=== PATIENT | female | born 1940 | race Caucasian/White ===

== ENCOUNTER 2018-02-18 19:30 | Observation (INO) ==
[2018-02-18 21:20] LABS: Basophils % 0.2 % (0.0-0.8); Eosinophils # 0.2 10*3/uL (0.0-0.87); Eosinophils % 2.4 % (0.00-10.9); Hematocrit 35.2 VOL% (35.7-47.0); Hemoglobin 11.3 GM/DL (12.0-16.0); Immature Granulocytes % 0.2 %; Immature Granulocytes Absolute 0.02 #; Lymphocytes # 1.3 10*3/uL (1.4-4.0); Lymphocytes % 14.8 % (21.3-54.2); Mean Corpuscular HGB Conc 32.1 GM/DL (32-36); Mean Corpuscular Hemoglobin 29 PG (27-34); Mean Corpuscular Volume 88.7 FL (87-102); Mean Platelet Volume 10.2 FL (9.6-12.0); Monocytes # 0.6 10*3/uL (0.11-0.8); Neutrophils # 6.6 10*3/uL (1.4-7.4); Neutrophils % 75.4 % (38.7-73.9); Platelet Count 274 T/CUMM (130-400); Red Blood Count 3.97 MC/CUMM (3.8-5.5); White Blood Count 8.8 T/CUMM (4-12)
[2018-02-18 21:52] LABS: Alanine Aminotransferase 17 U/L (13-56); Alkaline Phosphatase 84 U/L (45-117); Aspartate Amino Transferase 20 U/L (0-37); Bilirubin,Total < 0.39 MG/DL (0.2-1.0); Blood Urea Nitrogen 16 MG/DL (7-18); Calcium 8.8 MG/DL (8.5-10.1); Glucose 100 MG/DL (74-106); Potassium 3.8 MMOL/L (3.5-5.1); Sodium 143 MMOL/L (136-145); Total Protein 6.5 G/DL (6.4-8.3); Troponin I Only < 0.015 NG/ML (0.00-0.045)
[2018-02-19] MEDS ORDERED: NITROGLYCERIN SL 0.4 MG TABLET SL PRN (00:58)
[2018-02-19 05:08] LABS: Troponin I Only < 0.015 NG/ML (0.00-0.045)
[2018-02-19] MEDS ORDERED: BACLOFEN 10 MG TABLET PO PRN (06:47)
[2018-02-19 08:44] LABS: Troponin I Only < 0.015 NG/ML (0.00-0.045)
[2018-02-19] MEDS ORDERED: ASPIRIN EC 81 MG TABLET PO SCH (09:00)
[2018-02-19] MEDS ORDERED: hydroCHLOROthiazide 25 MG TABLET PO SCH (09:00)
[2018-02-19] MEDS ORDERED: CALCIUM (CARBONATE)/VITAMIN D 600 MG-400 UNIT TABLET PO SCH (09:00)
[2018-02-19] MEDS ORDERED: DOCUSATE SODIUM 100 MG CAPSULE PO SCH (09:00)
[2018-02-19] MEDS ORDERED: POLYCARBOPHIL 625 MG TABLET PO SCH (09:00)
[2018-02-19] MEDS ORDERED: ESTRADIOL 1 MG TABLET PO SCH (09:00)
[2018-02-19] MEDS ORDERED: CYANOCOBALAMIN SL SCH (09:00)
[2018-02-19] MEDS ORDERED: COBAMAMIDE SL SCH (09:00)
[2018-02-19] MEDS ORDERED: POTASSIUM CHLORIDE 10 MEQ TABLET PO SCH (09:00)
[2018-02-19] MEDS ORDERED: BENAZEPRIL 10 MG TABLET PO SCH (09:00)
[2018-02-19 14:10] LABS: Troponin I Only < 0.015 NG/ML (0.00-0.045)
[2018-02-19 16:38] VITALS: BP 140/58
[2018-02-19] MEDS ORDERED: PRAVASTATIN 40 MG TABLET PO SCH (21:00)
== END 2018-02-19 18:13 | disposition home or self-care (01) ==
LOC: N.EDINP 19:30 → N.ED 19:30 → N.TELEN 02-19 00:16
PROVIDERS: ADMIT Family Medicine; ATTEND Family Medicine